=== PATIENT | female | born 1990 | race Caucasian/White ===

== ENCOUNTER 2017-05-01 09:26 | Observation (INO) ==
[2017-05-01] MEDS ORDERED: Ringers Solution, Lactated 1,000 ML ONE (10:03)
--- NOTE | 2017-05-01 10:20 | Anesthesia Evaluation PreOp ---
Date of Encounter: 05/01/17 Time of Encounter: 10:17 - Past History Planned Operation: Suction D & C Cardiac History: Denies any Significant Hx Pulmonary History: Denies Any Significant HX [employer] History: Denies Any Significant HX Other Medical History: Denies Any Significant HX Anesthesia History: Past Anesthesia (no prior surgery) : Yes Alcohol Use: unknown Drug use: none Medications and Allergies Vit/FA 1 tab PO DAILY 04/04/16 [History] Ibuprofen [Motrin] 600 mg PO TID PRN #60 tablet 04/09/16 [Rx] Azithromycin [Azithromycin 6-Tab Pack] 250 mg PO DAILY #6 tab 11/04/16 [Rx] Ibuprofen [Motrin] 600 mg PO Q6-8H PRN #30 tab 11/04/16 [Rx] Allergies No Known Allergies Allergy (Verified 04/04/16 22:14) - Meds/Allergy Pre-op Review Medications Reviewed: Yes Allergies Reviewed: Yes Beta Blockers on Current Med List: No Anesthesia Results - Labs Laboratory Tests 04/30/17 04/30/17 11:35 11:35 WBC 5.8 Hgb 13.1 Hct 38.0 Plt Count 239 Beta HCG, Quant 05345 H Anesthesia Exam O2 Sat Height 1.63 m Weight 63 kg Vital Signs Temp Pulse Resp BP 97.8 F 66 14 105/59 05/01/17 11:16 05/01/17 11:16 05/01/17 11:16 05/01/17 11:16 Height: 5'4''/1.63 m Weight: 148 lbs/63 kg NPO (# of Hours): 8 Pain Scale: 0 Pain Scale Used: Numeric (1 - 10) - HEENT Pupil (Motor): EOMI Mallampati: II Teeth: Normal Oral Opening: Greater than 3 - [employer] LOC: Oriented [employer] Motor: Normal RUE, Normal LUE, Normal RLE, Normal LLE, Normal Face [employer] Sensory: Normal: RUE, LUE, RLE, LLE, Face - Cardiac Rhythm: Regular Murmur: None - Pulmonary Breath Sounds: bilateral Clear Respiratory Effort: Symmetrical Anesthesia Assess/Plan ASA Score: 2 Modified Goessel Scale for Level of Consciousness: Cooperative, oriented, and tranquil Anesthetic Plan: General Monitoring Plan: Standard Monitors Recovery Plan: PACU
[2017-05-01] MEDS ORDERED: Metoclopramide 10 MG/2 ML VIAL IVP ONE (10:28)
[2017-05-01] MEDS ORDERED: Famotidine 20 MG/2 ML VIAL IVP ONE (10:28)
[2017-05-01] MEDS ORDERED: Ringers Solution, Lactated 1,000 ML IVC SCH ×2 (10:30→11:00)
--- NOTE | 2017-05-01 10:35 | OB/GYN History & Physical ---
Date of Encounter: 05/01/17 Time of Encounter: 10:31 Assessment and Plan (1) Incomplete Current visit: Yes Status: Acute Routine pre-op orders. Dr Gatica to complete suction D&C Anesthesia to see patient prior to procedure Discharge home later this afternoon after stable in recovery. History of Present Illness Chief complaint: Scheduled D&C HPI: Ms. Sanchez is a 26 year old patient of Dr Friedman'jeremiah that arrives to labor and delivery for scheduled suction D&C of an incomplete spontaneous . She states she is still bleeding "a little, but not as heavy as it was." She denies headache, vision changes, abdominal pain/tenderness, fever, and flu-like symptoms. Past Med Surg Social Fam HX - Past Medical History Medical history: other Psychiatric history: anxiety - Past Surgical History Surgical History: no surgical history, other - Social History Smoking Status: Unknown if ever smoked Smokeless Tobacco Status: No Alcohol use: unknown Drug use: none - Family History Father Living Status: Cause of : cancer Hx Family Cancer: Yes Obstetrical History - Pregnancies : 2 Para: 1 Term: 1 : 0 Ab's: 1 Livin Medications and Allergies Vit/FA 1 tab PO DAILY 04/04/16 [History] Ibuprofen [Motrin] 600 mg PO TID PRN #60 tablet 04/09/16 [Rx] Azithromycin [Azithromycin 6-Tab Pack] 250 mg PO DAILY #6 tab 11/04/16 [Rx] Ibuprofen [Motrin] 600 mg PO Q6-8H PRN #30 tab 11/04/16 [Rx] Allergies No Known Allergies Allergy (Verified 04/04/16 22:14) Review of System OB All systems PM: reviewed and no additional remarkable complaints except as stated Exam - Constitutional Constitutional: well developed, well nourished, no acute distress, average body habitus - HEENT HEENT: Normocephaly, Mucus Membranes Moist - Lungs Respiratory exam: CTAB - Cardiovascular Cardiovascular exam: RRR, +S1, +S2 - Abdomen Abdomen: Present: bowel sounds normal, non tender - Extremities Extremities exam: normal capillary refill, normal inspection, radial pulses palpable and symetrical Deep Tendon Reflex Grade: 1+ Diminished Results All other labs normal. - VTE Reasons for not Prescribing Prophylaxis: Treatment not Indicated - Low risk for VTE
[2017-05-01] MEDS ORDERED: *HR* Meperidine 25 MG/ML SYRINGE IVP PRN (10:54)
[2017-05-01] MEDS ORDERED: Naloxone 0.4 MG/ML INJ IVP PRN (10:54)
[2017-05-01] MEDS ORDERED: Ondansetron 4 MG/2 ML VIAL IVP ONE (10:54)
[2017-05-01] MEDS ORDERED: Albuterol 2.5 MG/3 ML NEBULIZER IH ONE (10:54)
[2017-05-01] MEDS ORDERED: *HR* HYDROmorphone (PF) 1 MG/ML SYRINGE IVP PRN (10:54)
[2017-05-01 11:18] VITALS: BP 105/59
--- NOTE | 2017-05-01 12:51 | OB/GYN Progress Note ---
Date of Encounter: 05/01/17 Time of Encounter: 12:49 - Assessment and Plan (1) Spontaneous Current Visit: Yes Status: Acute Subjective - Subjective Interval history: Pt. to L&D for suction D&C for missed AB. Pt. took dose of Cytotec last evening and had significant bleeding in the middle of the night with passage of tissue. 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 Objective - Vital Signs Latest vital signs: Vital Signs Temp Pulse Resp BP 05/01/17 11:16 97.8 F 66 14 105/59 Intake and Output 04/30/17 05/01/17 05/01/17 23:59 07:59 15:59 Other: Weight 63 kg Patient Weight 05/01/17 23:59 Weight 63 kg - I&O's I&O's: Intake & Output 04/28/17 04/29/17 04/30/17 05/01/17 23:59 23:59 23:59 23:59 Weight 63 kg - Exam Comments: Bedside U/S performed with no IUP noted. Formal U/S then obtained with evidence of spontaneous with blood clot in cervical canal. Findings discussed with pt. who is comfortable not proceeding with surgery. Precautions given. To f/u with Dr. Meade as scheduled Consult Discharge Plan - Plan Referrals: NO,PCP [Primary Care Provider] -
== END 2017-05-01 12:58 | disposition home or self-care (01) ==
LOC: SAMDAY 09:26 → 1NENULAB 09:26

== ENCOUNTER 2019-08-12 08:00 | Inpatient (IN) ==
[2019-08-12] MEDS ORDERED: FLU Vac QV 19-20 (6Month+)/PF 0.5 ML SYRINGE IM ONE (08:19)
[2019-08-12] MEDS ORDERED: Ondansetron 4 MG/2 ML VIAL IVP PRN (08:28)
[2019-08-12] MEDS ORDERED: Naloxone 0.4 MG/ML INJ IVP PRN (08:28)
[2019-08-12] MEDS ORDERED: Famotidine 20 MG/2 ML VIAL IVP PRN (08:28)
[2019-08-12] MEDS ORDERED: *HR* Nalbuphine 10 MG/ML AMPUL IVP PRN (08:28)
[2019-08-12] MEDS ORDERED: Metoclopramide 10 MG/2 ML VIAL IVP PRN (08:28)
[2019-08-12] MEDS ORDERED: Ringers Solution, Lactated 1,000 ML IVC SCH (08:30)
[2019-08-12 08:59] LABS: Basophils # 0.1 K/mcL (0.0-0.2); Basophils % 0.8 %; Eosinophils # 0.3 K/mcL (0.0-0.6); Eosinophils % 4.3 %; Hematocrit 35.4 % (35.3-44.9); Hemoglobin 11.8 g/dL (11.5-15.4); Immature Granulocytes % 0.3 % (0-4); Lymphocytes # 1.5 K/mcL (0.6-4.6); Lymphocytes % 20.8 %; Mean Corpuscular HGB Conc 33.3 g/dL (31.6-35.5); Mean Corpuscular Hemoglobin 29.9 pg (28.0-33.3); Mean Corpuscular Volume 89.6 fL (83.0-100.0); Mean Platelet Volume 10.8 fL (9.4-12.4); Monocytes # 0.6 K/mcL (0.0-1.3); Monocytes % 8.2 %; Neutrophils # 4.8 K/mcL (1.6-8.9); Platelet Count 223 K/mcL (140-400); Red Blood Count 3.95 M/mcL (3.82-4.97); Red Cell Distribution Width 12.4 % (11.5-14.5); Segmented Neutrophils % 65.6 %; White Blood Count 7.4 K/mcL (4.3-11.1)
[2019-08-12 09:00] LABS: Amphetamine Screen,Urine Negative ng/mL (Cutoff=1000); Barbiturate Screen,Urine Negative ng/mL (Cutoff=200); Benzodiazepines Screen,Urine Negative ng/mL (Cutoff=200); Cannabinoid Screen,Urine Negative ng/mL (Cutoff = 50); Cocaine Screen,Urine Negative ng/mL (Cutoff= 300); Opiate Screen,Urine Negative ng/mL (Cutoff=300); Phencyclidine Screen,Urine Negative ng/mL (Cutoff=25)
[2019-08-12] MEDS ORDERED: miSOPROStol 25 MCG TABLET VG SCH (09:00)
[2019-08-12] MEDS ORDERED: miSOPROStol 25 MCG TABLET PO ONE (09:27)
[2019-08-12] MEDS ORDERED: Epidural Premix (fent/bupiv) 110 ML EP SCH (10:45)
[2019-08-12] MEDS ORDERED: Oxytocin 20 units/ LR 1000 mL 20 UNIT/1,000 ML BAG IVC ONE (14:38)
[2019-08-12] MEDS ORDERED: Oxytocin 20 units/ LR 1000 mL 20 UNIT/1,000 ML BAG IVC SCH ×2 (14:45→21:30)
[2019-08-12] MEDS ORDERED: Lidocaine -MPF 1% 5 ML AMPUL ONE (19:35)
[2019-08-12] MEDS ORDERED: *HR* HYDROcodone/Acet 5/325 mg TABLET PO PRN (21:30)
[2019-08-12] MEDS ORDERED: Measles/Mumps/Rubella Vacc 0.5 ML VIAL SQ PRN (21:30)
[2019-08-12] MEDS ORDERED: Benzocaine/Menthol 56 GM AEROSOL SPRAY TP PRN (21:30)
[2019-08-12] MEDS ORDERED: Hydrocortisone Rectal 2.5% CRM 28 GM TUBE RC PRN (21:30)
[2019-08-12] MEDS ORDERED: Ibuprofen 600 MG TABLET PO PRN (21:30)
[2019-08-12] MEDS ORDERED: Lanolin 7 G OINT...G. TP PRN (21:30)
[2019-08-12] MEDS ORDERED: Acetaminophen 325 MG TABLET PO PRN (21:30)
[2019-08-13] MEDS ORDERED: Prenatal Vit/FA 1 EACH TABLET PO SCH (09:00)
[2019-08-13] MEDS ORDERED: FLU Vac QV 19-20 (6Month+)/PF 0.5 ML SYRINGE IM ONE (13:53)
[2019-08-13 16:24] VITALS: BP 103/68
== END 2019-08-13 20:55 | disposition home or self-care (01) | DRG 806 ==
LOC: 1NENULAB 08:04 → 1NENUOBS 21:29
PROVIDERS: ADMIT Obstetrics & Gynecology; ATTEND Obstetrics & Gynecology